=== PATIENT | female | born 1955 | race Caucasian/White ===

== ENCOUNTER → 2016-08-27 | Outpatient (CLI) | payer OTHER | END | disposition home or self-care (01) | LOC: C.LABMFLN 12:12 | PROVIDERS: ATTEND Internal Medicine Endocrinology, Diabetes & Metabolism | DX: E55.9 Vitamin D deficiency, unspecified (principal); M81.0 Age-related osteoporosis without current pathological fracture ==

== ENCOUNTER 2020-04-23 11:02 | Observation (INO) ==
--- NOTE | 2020-04-17 16:03 | Anesthesiology Consultation ---
Date of Service April 17, 2020 Assessment & Plan (1) Encounter for pre-operative examination: Chart Review Chart Review: Acceptable Risk for Surgery (pending DOS PRP ) and Patient NOT seen in Pre Admission Testing - PRP not done with preop testing- will order for AM of surgery. Per nursing assessment 04/16/2020, patient resides in [facility]. Denies any recent travel. Uses PPE. No known Covid infection in the past 90 days. No known Covid positive contacts or Covid related symptoms. Scheduled for preop Covid testing 04/17/20= awaiting results. Seen by PCP 12/26/2019 = PCP seen for preoperative medical clearance. Patient able to walk no chest symptoms. " There is no medical contraindication for the proposed surgery and anesthesia. Concerns/precautions: Tobacco smoker." History Surgery Operation Date: 04/23/20 12:20 Proposed Procedures p Right Total Hip Arthroplasty Anterior - Mando Barksdale DO s Removal Hardware - Mando Barksdale DO Height/Weight Height: 5 ft 1 in Weight: 70.307 kg Allergies Allergy/AdvReac Type Severity Reaction Status Date / Time codeine AdvReac Vomiting Verified 04/16/20 11:00 Medications Home Medications Medication Instructions Recorded Confirmed Last Taken docusate sodium 100 mg PO QPM 12/09/19 04/16/20 Unknown gabapentin 300 mg PO TID 12/09/19 04/16/20 Unknown paroxetine HCl 20 mg PO QPM 12/09/19 04/16/20 Unknown simvastatin 40 mg PO PM 12/09/19 04/16/20 Unknown meloxicam 15 mg PO PM 04/16/20 04/16/20 Unknown Past Medical History Medical History Degenerative disc disease Hyperlipemia IBS (irritable bowel syndrome) Osteoarthritis Post-menopausal prescribed paroxetine for post menopausal mood changes Past Family History Family History Grandmother Diabetes Other No family history of adverse response to anesthesia Past Surgical History Surgical History History of colonoscopy History of esophagogastroduodenoscopy (EGD) History of open reduction and internal fixation (ORIF) procedure Rt hip History of salpingectomy History of tooth extraction Social History Smoking Status: Current every day smoker tobacco type: cigarettes Smoking cigarettes per day: 1ppd Do You Dip or Chew Tobacco: No Hx Alcohol Use: No Hx Substance Use: No substance use type: does not use Testing Laboratory Results Laboratory Tests 04/17/20 04/17/20 12:16 12:16 WBC 8.06 Hgb 14.4 Hct 42.6 Plt Count 268 PT 10.3 INR 1.0 APTT 27.7 04/17/2020 = UA: Trace ketones, trace leukocyte esterase, 510 urine RBC, >30 epithelial cells, negative for bacteria HGB A1C: 6.1 Electrocardiogram Date: 12/21/19 NSR at 81bpm. iRBBB. Chest X-Ray Date: 12/21/19 Findings: + NAD Borderline cardiomegaly.
--- NOTE | 2020-04-22 09:55 | History & Physical Report ---
Date of Service April 23, 2020 Assessment & Plan (1) Degenerative joint disease of right hip: I have indicated the patient for Removal of hardware and right anterior total hip replacement. The risks, benefits and complications of surgery were explained to the patient which include but not limited to infection, acute blood loss, DVT/PE, injury to nerves, vessels, bone, soft tissue, arthrofibrosis, chronic pain, failure of the prosthesis, hip dislocation, leg length discrepancy, need for additional surgery, cardiac and pulmonary events and . The patient wished to proceed with surgery and informed consent was obtained at this time. We will plan for 81mg ASA BID post-operatively for DVT prophylaxis. Upon discharge the patient will be discharged home with home health services. Appropriate clearances by PCP were obtained. History of Present Illness Chief Complaint: Right hip pain/DJD Primary Care Provider: Stephon Barrios MD The patient is a 65 year old female who presents with complaints of severe right hip pain and DJD, PSHx for right hip fracture s/p ORIF with cannulated screws. The patient has failed outpatient conservative treatments to this point which included NSAIDs, IA corticosteroid injection and a home exercise/walking program. The patient's pain and limited function have progressed to the point where they severely hinder their activities of daily living and they no longer tolerate exercise programs. They are requesting to proceed with total hip replacement surgery. Allergies Allergy/AdvReac Type Severity Reaction Status Date / Time codeine AdvReac Vomiting Verified 04/23/20 11:34 Home Medications Medication Instructions Recorded Confirmed Type docusate sodium 100 mg PO QPM 12/09/19 04/23/20 History gabapentin 300 mg PO TID 12/09/19 04/23/20 History paroxetine HCl 20 mg PO QPM 12/09/19 04/23/20 History simvastatin 40 mg PO PM 12/09/19 04/23/20 History meloxicam 15 mg PO PM 04/16/20 04/23/20 History Past Med/Surg History Medical History Degenerative disc disease Hyperlipemia IBS (irritable bowel syndrome) Osteoarthritis Post-menopausal prescribed paroxetine for post menopausal mood changes Surgical History History of colonoscopy History of esophagogastroduodenoscopy (EGD) History of open reduction and internal fixation (ORIF) procedure Rt hip History of salpingectomy History of tooth extraction Family History Grandmother Diabetes Other No family history of adverse response to anesthesia Social History Smoking Status: Current every day smoker Cigarettes Per Day: 1ppd; Second Hand Exposure: No; Do You Dip or Chew Tobacco: No; Tobacco Cessation Education Requested by Patient: No Hx Alcohol Use: No Hx Substance Use: No Preferred Language: Greenlandic Communication Ability: Effective [employer] Membership Advisors Required: No Beliefs That Will Affect Care: None Current Living Situation: Spouse Other Information That Helps Us Care for You: No Feels Safe at Home: Yes Safety Concerns: Feels Safe At This Time Assistive Devices: Glasses Review of Systems Review of Systems: All systems reviewed & are unremarkable except as noted in HPI & below Constitutional: as per Subjective / HPI Physical Exam Physical Exam: RLE NVSI +EHL/FHL/TA/GS SILT grossly, +2 DP pulse, compartments soft NT, limited painful ROM of the hip, antalgic gait. Constitutional: WD/WN, vitals as above Eyes: PERRL, conjunctivae normal, anicteric sclerae ENMT: external ear and nose normal, oropharynx normal Neck: trachea midline, no thyromegaly Respiratory: normal respiratory effort, lungs clear to auscultation Cardiovascular: RRR, no murmur, no edema Gastrointestinal (Abdomen): normal bowel sounds, soft, nontender, no hepatosplenomegaly Musculoskeletal: no cyanosis or clubbing, extremities motor strength 5/5 Skin: no rashes, warm and dry Neurologic: patellar DTR's 2+ bilat, sensation intact Psychiatric: A+Ox3, euthymic affect Lymphatic: no cervical or axillary lymphadenopathy Results & Data Results & Data ([facility]) Diagnostic Findings Multiple views of the hip demonstrates severe DJD with complete loss of the joint space. +osteophytes, +sclerosis, +subchondral cysts. Well aligned well fixed cannulated screws.
[~2020-04-23 11:02] MED LIST: ACETAMINOPHEN 500 MG TAB PO SCH; BUPIVACAINE 0.5 % 5 MG/1 ML PF 10ML VIAL ONE; CeleBREX 200 MG CAP PO SCH; FAMOTIDINE 20 MG TAB PO SCH; GABAPENTIN 600 MG DOSE PO SCH; LR 500ML BOLUS, THEN 15ML/HR IV SCH; METOCLOPRAMIDE HCL 10 MG TABLET PO SCH; ROPIVACAINE 0.5% HCL/PF 150 MG, BUPIVACAINE 0.75% MPF 20 ML, EPINEPHrine 30MG/30ML (OR ... INSTIL SCH; TRANEXAMIC ACID 1,000 MG **IV Intra-op IV SCH; TRANEXAMIC ACID 1,000 MG **IV Pre-op IV SCH; ceFAZolin 1000MG 1,000 MG/7.5 ML SYR IV SCH; dexAMETHasone 4 MG TAB PO SCH
[2020-04-23 11:47] LABS: BUN Creatinine Ratio 15.9 (10-20); Calcium 10.2 mg/dl (8.5-10.1); Creatinine Clr Calc Pharmacy 67.1 ml/min; Est GFR (African American) 96.9; Est GFR (Non-African American) 83.6; Potassium 4.1 mmol/L (3.5-5.1)
[2020-04-23] MEDS ORDERED: PROPOFOL IV EMULSION 10 MG/ML 20 ML VIAL IV ONE (12:51)
[2020-04-23] MEDS ORDERED: MIDAZOLAM HCL 1 MG/ML 2ML VIAL ONE (12:51)
--- NOTE | 2020-04-23 13:44 | History & Physical Bridge Note ---
Date of Service April 23, 2020 History & Physical Bridge Note I have examined the patient, reviewed the History & Physical and in the interval since the performance of the History & Physical I have noted the following changes of clinical significance: no changes noted
[2020-04-23] MEDS ORDERED: ORTHO JOINT ANESTHETIC ONE (14:07)
[2020-04-23] MEDS ORDERED: BACITRACIN INJ 50,000 UNIT VIAL ONE (14:07)
[2020-04-23] MEDS ORDERED: ePHEDrine sulfate 50 MG/ML AMP IV PRN (14:26)
[2020-04-23] MEDS ORDERED: fentaNYL citrate 100 MCG/2 ML VIAL IV PRN (14:26)
[2020-04-23] MEDS ORDERED: ATROPINE SULFATE 0.1 MG/ML 10ML SYR IV PRN (14:26)
[2020-04-23] MEDS ORDERED: ONDANSETRON INJ 2 MG/ML 2 ML VIAL IV PRN ×2 (14:26→18:01)
--- NOTE | 2020-04-23 16:47 | Post Operative Brief Note ---
Immediate Post Op Note v1 Date of Surgery April 23, 2020 Pre & Post Diagnosis Operation Date: 04/23/20 13:20 Pre-Op Diagnosis: Right Hip Arthritis, Retained Hardware Post-Op Diagnosis: Right Hip Arthritis, Retained Hardware I identified the patient and participated in the time-out.: Yes Procedure Operation Date: 04/23/20 13:20 Actual Procedures p Right Total Hip Arthroplasty Anterior(Right) - Mando Barksdale DO s Removal Hardware(Right) - Mando Barksdale DO Surgeon Mando Barksdale DO Tender Labor Jamey Tai Estimated Blood Loss 255 Findings Consistent with Post-Op Diagnosis Fluids See anesthesia report Specimens Femoral head Anesthesia Type Spinal MAC Complications none Disposition Disposition: Recovery Room Overlapping Procedure I was present for: the critical portions of procedure. I was immediately available: during the entire case. Back up surgeon: was not required during procedure.
[2020-04-23] MEDS ORDERED: LIDOCAINE HCL 2% 2 ML VIAL/AMP(20MG/ML) INFIL ONE (16:50)
[2020-04-23] MEDS ORDERED: PHENYLEPHRINE HCL 10 MG/ML VIAL ONE (16:50)
--- NOTE | 2020-04-23 16:52 | Operative Report ---
Post Operative Report Pre & Post Diagnosis Operation Date: 04/23/20 13:20 Pre-Op Diagnosis: Right Hip Arthritis, Retained Hardware Post-Op Diagnosis: Right Hip Arthritis, Retained Hardware I identified the patient and participated in the time-out.: Yes Procedure Operation Date: 04/23/20 13:20 Actual Procedures p Right Total Hip Arthroplasty Anterior(Right) - Mando Barksdale DO s Removal Hardware(Right) - Mando Barksdale DO Surgeon Mando Barksdale DO Assessor Jamey Tai Estimated Blood Loss 255 Findings Consistent with Post-Op Diagnosis Fluids See anesthesia report Specimens Femoral head Anesthesia Type Spinal MAC Complications none Disposition Disposition: Recovery Room Indications The patient is a 65 year old female who presents with complaints of severe right hip pain and DJD, PSHx for right hip fracture s/p ORIF with cannulated screws. The patient has failed outpatient conservative treatments to this point which included NSAIDs, IA corticosteroid injection and a home exercise/walking program. The patient's pain and limited function have progressed to the point where they severely hinder their activities of daily living and they no longer tolerate exercise programs. They are requesting to proceed with total hip replacement surgery. I have indicated the patient for Removal of hardware and right anterior total hip replacement. The risks, benefits and complications of surgery were explained to the patient which include but not limited to infection, acute blood loss, DVT/PE, injury to nerves, vessels, bone, soft tissue, arthrofibrosis, chronic pain, failure of the prosthesis, hip dislocation, leg length discrepancy, need for additional surgery, cardiac and pulmonary events and . The patient wished to proceed with surgery and informed consent was obtained at this time. We will plan for 81mg ASA BID post-operatively for DVT prophylaxis. Upon discharge the patient will be discharged home with home health services. Appropriate clearances by PCP were obtained. Description of Procedure COMPONENTS USED: [employer] Polar hip system: Acetabulum size 52, femur size 3 high offset, femoral head 36+4, liner 52x36, acetabular screw 25 mm x 2. DESCRIPTION OF PROCEDURE: Following satisfactory spinal anesthesia, the patient was placed supine on the OR table. The left leg was placed in the well leg garcia and the right leg in the traction device. The right leg was prepared with ChloraPrep and draped sterilely. A surgical timeout was performed, patient identified and site ugo verified. Appropriate antibiotics were given. A direct lateral incision was performed through skin and subcutaneous tissue in line with previous incision. Electrocautery was utilized for hemostasis. Dissection was carried down through fascia to bone. The Jacome was utilized to clear the soft tissue overlying the cannulated screw heads. Under direct visualization 3 cannulated screws in their entirety were removed utilizing the 4.0 hex head screwdriver. C-arm fluoroscopy was utilized to ensure adequate removal of the the screws without injury to surrounding bone. Next a standard anterior approach in the interval between the sartorius and tensor muscles was performed. Dissection was carried down through subcutaneous tissues. Electrocautery was utilized for hemostasis. Circumflex femoral vessels were identified, tied and ligated. The anterior capsular fat pad was removed and the capsulotomy was performed revealing the arthritic femoral neck and head. A femoral neck cut was made with reciprocating saw and the bone fragments removed. The acetabular self-retraining retractor was placed. Acetabular reaming was completed under fluoroscopic guidance, a 52 shell was impacted into an anatomic position and secured with a acetabular screw. Local anesthetic was placed and following irrigation, the polyethylene liner was placed. The femur was placed into position of external rotation, extension and adduction. Femoral canal was prepared up to the size 3 high offset. Trial reduction with a 36+4 neck length head showed good soft tissue tension, leg lengths restored, and good fit and fill of the proximal canal using fluoroscopic landmarks. The hip was dislocated. The trial component was removed. The final implant was placed. The hip was irrigated with sterile saline solution and reduced. A Betadine soak was performed. After 3 minutes, the hip was once more irrigated with copious sterile saline solution with bacitracin. Jeanine-incisional soft tissue was injected utilizing [place] [employer] which includes a combination of Ropivicaine 0.5% 150mg, Bupivicaine 0.5%/Epinephrine 1:200,000 30ml, Toradol 30mg, Dexamethasone 4mg, Ketamine 10mg, Clonidine 100mcg and NSS 30ml solution. The capsule was then closed with 1-0 Vicryl interrupted figure of eight sutures. The fascia was closed with a running suture of #1 Vicryl, the subcutaneous tissues with 2-0 Vicryl and the skin was closed with don. A sterile dry dressing was applied which included Xeroform 4 x 4's ABDs and foam tape. The patient tolerated the procedure well and was transported to PACU in stable condition. Due to the complex nature of the procedure, the entire surgery was performed with the operational assistance of Jamey Tai PA-C. The therapist's assistant, under direct supervision, was involved in the actual performance of all aspects of the surgical procedure including patient positioning, hemostasis, tissue retraction, instrument management and wound closure. I attest to the content of the Intraoperative Record and any orders documented therein. Any exceptions are noted below.
--- NOTE | 2020-04-23 17:39 | XRay Report ---
SINGLE VIEW PELVIS; SINGLE VIEW RIGHT HIP CLINICAL HISTORY: Postoperative examination. FINDINGS: An AP portable view of the hips and pelvis with a crosstable lateral portable view of the r ight hip are obtained. A bipolar right hip arthroplasty is in near-anatomic alignment. 2 cortical lag screws transfix the acetabular cup. No acute fracture is identified. There are expected postoperativ e changes overlying the right hip including skin clips, subcutaneous gas, and soft tissue swelling. M oderate arthritic changes seen in the left hip. There are pelvic phleboliths. IMPRESSION: Expected postoperative findings status post right hip arthroplasty. No acute fracture is seen. ACT 112: Negative or not required by law. Electronically signed by: Dayron Maynard M.D. 04/23/2020 5:38 PM
--- NOTE | 2020-04-23 17:57 | Anesthesiology Progress Note ---
Date of Service April 23, 2020 Anesthesia Post Procedure Vital Signs Vital Signs: Temp Pulse Pulse Resp BP Pulse Ox 04/23/20 17:50 73 16 147/75 H 95 04/23/20 17:40 36.5 C 80 18 148/76 H 96 04/23/20 17:30 79 16 142/95 H 100 04/23/20 17:20 71 16 150/74 H 100 04/23/20 17:16 36.7 C 73 18 157/72 H 100 04/23/20 11:56 36.8 C 86 18 148/92 H 95 Transfer of Care Handoff Completed per policy Notes Mental Status: alert / awake / arousable and participated in evaluation Nausea / Vomiting: adequately controlled Pain: adequately controlled Airway Patency, RR, SpO2: stable & adequate BP & HR: stable & adequate Hydration State: stable & adequate Neuraxial Anesthesia: was administered and sensory block is resolving Anesthetic Complications: no major complications apparent and Pt Satisfied with anesthetic care
[2020-04-23] MEDS ORDERED: NALOXONE HCL 0.4 MG/1 ML VIAL/CARP IV PRN (18:01)
[2020-04-23] MEDS ORDERED: METOCLOPRAMIDE HCL INJ 5 MG/ML 2 ML VIAL IV PRN (18:01)
[2020-04-23] MEDS ORDERED: HYDROmorphone INJ 0.5 MG/0.5 ML SYR IV PRN (18:01)
[2020-04-23] MEDS ORDERED: MAGNESIUM HYDROXIDE SUSP 30 ML UDC PO PRN (18:01)
[2020-04-23] MEDS ORDERED: bisacodyL 10 MG SUPP PR PRN (18:01)
[2020-04-23] MEDS ORDERED: oxyCODONE HCL IR 5 MG TAB (IMMEDIATE RELEASE) PO PRN (18:01)
[2020-04-23] MEDS ORDERED: diphenhydrAMINE Capsule 25 MG CAP PO PRN (18:01)
--- NOTE | 2020-04-23 18:57 | Fluoroscopy Report ---
INTRAOPERATIVE RADIOGRAPHS CLINICAL HISTORY: Right hip arthroplasty. Fluoroscopy time: 35 seconds. FINDINGS: 2 spot fluoroscopic views of the right hip from an arthroplasty procedure are presented. A bipolar right hip arthroplasty is in near-anatomic alignment. At least one cortical lag screw transfi xes the acetabular cup. There is no evidence of fracture on these fluoroscopic views. IMPRESSION: Intraoperative images from a right hip arthroplasty procedure as above. Electronically signed by: Dayron Maynard M.D. 04/23/2020 6:56 PM
[2020-04-23] MEDS ORDERED: SODIUM CHLORIDE 0.9% 1000ML 1,000 ML IV SCH (19:00)
--- NOTE | 2020-04-23 19:00 | Orthopedic Progress Note ---
Date of Service April 23, 2020 Assessment & Plan (1) Degenerative joint disease of right hip: s/p RICCO, Right anterior ALICIA -ancef x 24 -DVT ppx: SCDs, TEDs, 81mg ASA BID -WBAT RLE -PT/OT -PO XR demonstrates a well aligned well fixed prosthesis without fracture/dislocation -am labs -DC planning Admission and Anticipated Discharge Date Admission Date: April 23, 2020 Subjective Post Operative Progress Note Patient seen in PACU, comfortable, denies complaints, pain well controlled, no acute issues. Review of Systems Review of Systems: All systems reviewed & are unremarkable except as noted in HPI & below Constitutional: as per Subjective / HPI Physical Exam Physical Exam: RLE NVSI +EHL/FHL/TA/GS SILT grossly, +2 DP pulse, compartments soft NT, dressing cdi. Constitutional: WD/WN, vitals as above Results & Data ([facility]) Vital Signs (Past 12 Hours) Vital Signs Temp Pulse Pulse Resp BP Pulse Ox 04/23/20 18:32 76 18 145/85 H 97 04/23/20 18:00 36.6 C 77 18 158/85 H 95 04/23/20 17:50 73 16 147/75 H 95 04/23/20 17:40 36.5 C 80 18 148/76 H 96 04/23/20 17:30 79 16 142/95 H 100 04/23/20 17:20 71 16 150/74 H 100 04/23/20 17:16 36.7 C 73 18 157/72 H 100 04/23/20 11:56 36.8 C 86 18 148/92 H 95
[2020-04-23] MEDS ORDERED: SIMVASTATIN 40 MG TAB PO SCH (21:00)
[2020-04-23] MEDS ORDERED: SENNA 8.6 MG TAB PO SCH (21:00)
[2020-04-23] MEDS ORDERED: PARoxetine HCL 20 MG TAB PO SCH (21:00)
[2020-04-23] MEDS: GABAPENTIN 300 MG CAP PO SCH (21:28)
[2020-04-23] MEDS: ACETAMINOPHEN 500 MG TAB PO SCH (21:30)
[2020-04-23] MEDS: ceFAZolin 2000MG 2,000 MG/15 ML SYR IV SCH (21:30)
[2020-04-23] MEDS: DOCUSATE SODIUM 100 MG CAP PO SCH (21:30)
[2020-04-24] MEDS: ceFAZolin 2000MG 2,000 MG/15 ML SYR IV SCH (05:19)
[2020-04-24] MEDS: ACETAMINOPHEN 500 MG TAB PO SCH ×2 (05:19→13:43)
[2020-04-24 05:58] LABS: Basophils # (auto) 0.01 K/uL (0-0.2); Basophils % (auto) 0.1 %; Hematocrit (blood only) 31.8 % (37-47); Hemoglobin 10.7 g/dL (12.0-16.0); Immature Granulocytes # (auto) 0.03 K/uL (0.00-0.02); Immature Granulocytes % (auto) 0.3 %; Mean Corpuscular Hgb Conc 33.6 g/dL (32-36); Mean Corpuscular Volume 92.2 fL (80-100); Mean Platelet Volume 10.2 fL (7.4-10.4); Monocytes # (auto) 1.27 K/uL (0.11-0.59); Monocytes % (auto) 11.1 %; Neutrophils # (auto) 8.51 K/uL (1.4-6.5); Neutrophils % (auto) 74.5 %; Platelet Count 227 K/uL (130-400); RDW Coefficient of Variation 13.8 % (11.5-14.5); Red Blood Count 3.45 M/uL (4.2-5.4); White Blood Count 11.42 K/uL (4.8-10.8)
[2020-04-24 06:24] LABS: BUN Creatinine Ratio 18.3 (10-20); Calcium 8.8 mg/dl (8.5-10.1); Creatinine Clr Calc Pharmacy 73.4 ml/min; Est GFR (African American) 98.5; Potassium 3.8 mmol/L (3.5-5.1)
--- NOTE | 2020-04-24 07:29 | Orthopedic Progress Note ---
Date of Service April 24, 2020 Assessment & Plan (1) Degenerative joint disease of right hip: s/p RICCO, Right anterior ALICIA POD#1 -ancef x 24 -DVT ppx: SCDs, TEDs, 81mg ASA BID -WBAT RLE -PT/OT -PO XR demonstrates a well aligned well fixed prosthesis without fracture/dislocation -am labs - as above, hgb 10.7 -DC planning - DC home with Admission and Anticipated Discharge Date Admission Date: April 23, 2020 Subjective Post Operative Progress Note Patient seen sitting up in bed, comfortable, denies complaints, pain well controlled, no acute issues. Denies F/C/N/V/SOB/CP. Review of Systems Review of Systems: All systems reviewed & are unremarkable except as noted in HPI & below Constitutional: as per Subjective / HPI Physical Exam Physical Exam: RLE NVSI +EHL/FHL/TA/GS SILT grossly, +2 DP pulse, compartments soft NT, dressing cdi. Constitutional: WD/WN, vitals as above Results & Data ([facility]) Vital Signs (Past 12 Hours) Vital Signs Temp Pulse Resp BP BP Pulse Ox 04/24/20 07:16 36.7 C 72 18 159/77 H 97 04/24/20 02:07 36.5 C 62 18 146/78 H 97 04/23/20 20:58 36.7 C 83 16 146/78 H 96 04/23/20 20:01 36.7 C 76 18 137/81 98 Laboratory Results 04/24/20 04/24/20 04/23/20 Range/Units 05:25 05:25 11:21 WBC 11.42 H (4.8-10.8) K/uL RBC 3.45 L (4.2-5.4) M/uL Hgb 10.7 L (12.0-16.0) g/dL Hct 31.8 L (37-47) % MCV 92.2 (80-100) fL MCH 31.0 (25-34) pg MCHC 33.6 (32-36) g/dL RDW Std Deviation 46.0 (36.4-46.3) fL RDW Coeff of Megha 13.8 (11.5-14.5) % Plt Count 227 (130-400) K/uL MPV 10.2 (7.4-10.4) fL Immature Gran % (Auto) 0.3 % Neut % (Auto) 74.5 % Lymph % (Auto) 14.0 % Thayer % (Auto) 11.1 % Eos % (Auto) 0.0 % Baso % (Auto) 0.1 % Neut # (Auto) 8.51 H (1.4-6.5) K/uL Lymph # (Auto) 1.60 (1.2-3.4) K/uL Thayer # (Auto) 1.27 H (0.11-0.59) K/uL Eos # (Auto) 0.00 (0-0.5) K/uL Baso # (Auto) 0.01 (0-0.2) K/uL Immature Gran # (Auto) 0.03 H (0.00-0.02) K/uL Sodium 141 145 (136-145) mmol/L Potassium 3.8 4.1 (3.5-5.1) mmol/L Chloride 111 H 112 H (98-107) mmol/L Carbon Dioxide 23 21 (21-32) mmol/L Anion Gap 7.0 12.0 H (3-11) BUN 14 12 (7-18) mg/dl Creatinine 0.74 0.75 (0.6-1.2) mg/dl Est Cr Clr Drug Dosing 73.4 67.1 ml/min Est GFR ( Amer) 98.5 96.9 Est GFR (Non-Af Amer) 85.0 83.6 BUN/Creatinine Ratio 18.3 15.9 (10-20) Glucose 124 H 110 H (70-99) mg/dl Calcium 8.8 10.2 H (8.5-10.1) mg/dl Blood Type Antibody Screen 04/23/20 Range/Units 11:21 WBC (4.8-10.8) K/uL RBC (4.2-5.4) M/uL Hgb (12.0-16.0) g/dL Hct (37-47) % MCV (80-100) fL MCH (25-34) pg MCHC (32-36) g/dL RDW Std Deviation (36.4-46.3) fL RDW Coeff of Megha (11.5-14.5) % Plt Count (130-400) K/uL MPV (7.4-10.4) fL Immature Gran % (Auto) % Neut % (Auto) % Lymph % (Auto) % Thayer % (Auto) % Eos % (Auto) % Baso % (Auto) % Neut # (Auto) (1.4-6.5) K/uL Lymph # (Auto) (1.2-3.4) K/uL Thayer # (Auto) (0.11-0.59) K/uL Eos # (Auto) (0-0.5) K/uL Baso # (Auto) (0-0.2) K/uL Immature Gran # (Auto) (0.00-0.02) K/uL Sodium (136-145) mmol/L Potassium (3.5-5.1) mmol/L Chloride (98-107) mmol/L Carbon Dioxide (21-32) mmol/L Anion Gap (3-11) BUN (7-18) mg/dl Creatinine (0.6-1.2) mg/dl Est Cr Clr Drug Dosing ml/min Est GFR ( Amer) Est GFR (Non-Af Amer) BUN/Creatinine Ratio (10-20) Glucose (70-99) mg/dl Calcium (8.5-10.1) mg/dl Blood Type A Positive Antibody Screen NEGATIVE
[2020-04-24] MEDS: GABAPENTIN 300 MG CAP PO SCH ×2 (08:30→13:42)
[2020-04-24] MEDS: DOCUSATE SODIUM 100 MG CAP PO SCH (08:31)
[2020-04-24] MEDS ORDERED: MULTIVITAMIN TAB PO SCH (09:00)
[2020-04-24] MEDS ORDERED: ASPIRIN 81 MG ECTAB PO SCH (09:00)
--- NOTE | 2020-04-24 17:58 | Discharge Summary ---
Date of Service April 24, 2020 Admission HPI Per Admitting Provider The patient is a 65 year old female who presents with complaints of severe right hip pain and DJD, PSHx for right hip fracture s/p ORIF with cannulated screws. The patient has failed outpatient conservative treatments to this point which included NSAIDs, IA corticosteroid injection and a home exercise/walking program. The patient's pain and limited function have progressed to the point where they severely hinder their activities of daily living and they no longer tolerate exercise programs. They are requesting to proceed with total hip replacement surgery. Principal Diagnosis Removal of hardware, Right anterior ALICIA -Post-traumatic right hip DJD Discharge Exam RLE NVSI +EHL/FHL/TA/GS SILT grossly, +2 DP pulse, compartments soft NT, dressing cdi. Constitutional WD/WN, vitals as above Discharge Data Allergies Allergy/AdvReac Type Severity Reaction Status Date / Time codeine AdvReac Vomiting Verified 04/23/20 11:34 Consultations 04/24/20 08:00 Consult Case Management - Discharge Planning Routine Procedures Performed Operation Date: 04/23/20 13:20 Actual Procedures p Right Total Hip Arthroplasty Anterior(Right) - Mando Barksdale DO s Removal Hardware(Right) - Mando Barksdale DO Ordered Studies 04/23/20 13:20 FL fluoroscopy <1hr Routine FL hip RT 1V Routine Hospital Course (1) Degenerative joint disease of right hip: The patient is a 65 -year-old female who presents with long standing history of severe right hip post-traumatic DJD and failed outpatient conservative treatments. The patient's symptoms have progressed to the point where it has been difficult to perform even normal activities of daily living. I indicated the patient for RICCO and a Right anterior total hip arthroplasty, the risks, benefits and complications of the procedure include but not limited to infection, bleeding, damage to bone, nerves, vessels, surrounding soft tissue, may develop blood clots, loss of function, leg length discrepancy, dislocation, failure of the components, loosening of the components, the need for additional surgery and . The patient wished to proceed with surgery at this time and informed consent was obtained. Hospital Course: On 04/23/20 the patient was taken to the operating room, adequate anesthesia administered and underwent removal of hardware and right anterior total hip arthroplasty. The patient tolerated the procedure well and was taken to the PACU in stable condition. Post-operatively the patient was started on a DVT ppx medication and given appropriate IV antibiotics. Consults were placed to physical therapy, occupational therapy and case management. On POD#1, the patient did well overnight and their pain was well controlled. Labs were drawn and the Hgb was 10.7. The patient progressed well with PT. Dressings were changed at this time and the incision was clean, dry and intact. The patients hospital stay was relatively uneventful and they were deemed stable by the orthopedic team and consultants to be discharged home with HH on 04/24/20. Discharge Instructions: Upon discharge the patient may weight bear as tolerates through their operative extremity. They were instructed to keep the incision clean and dry at all times. The patient may shower but should not submerge the incision, avoid bathing, pools and hot tubs. The patient was given a script for pain medication and should take as instructed. The patient was given a script for DVT ppx 81mg ASA BID and should take as directed. The patient was instructed to not drive or travel for long distances until cleared to do so. If the patient develops any symptoms of fevers, chills, nausea, vomiting, increased redness, swelling, pain or drainage from the surgical site, they should notify the office and/or proceed to the nearest emergency room. The patient should follow up in 10-14 days after surgery for their routine post-operative follow-up appointment and should call the office, to confirm the date and time. s/p RICCO, Right anterior ALICIA POD#1 -ancef x 24 -DVT ppx: SCDs, TEDs, 81mg ASA BID -WBAT RLE -PT/OT -PO XR demonstrates a well aligned well fixed prosthesis without fracture/dislocation -am labs - as above, hgb 10.7 -DC planning - DC home with Total Time Total Time Spent Total Time Spent (In Minutes): 30 Discharge Plan Discharge Items Patient Disposition: Home - Home Health Services Reason For Visit: Right Hip Arthritis, Retained Hardware Discharge Diagnosis: Removal of hardware, Right anterior total hip replacement -Right hip post-traumatic DJD Condition on Discharge: Good Activity: Per Instructions section Lifting: Wait until after follow-up appointment Bathing: Keep incision dry Bathing Comment: No bathing, pools or hot tubs. Sexual Activity: Wait until after follow-up appointment Exercise/Sports: Wait until after follow-up appointment Driving/Machine Use: No driving. Weightbearing: Full weightbearing Non-emergency contact: Primary Care Provider and Surgeon Call non-emergency contact if: you have any medication questions, your symptoms worsen, your pain is not controlled, your pain is worsening, your pain is unusual for you, your pain is concerning for you, you have a fever, your temperature is above 101, your wound has increased redness, your wound has increased drainage and your wound pain has increased Follow-up/Referrals: Stephon Barrios MD [Primary Care Provider] - Diet: Regular Addtl Attending Provider Instructions: ACTIVITY RECOMMENDATIONS: SELF CARE INSTRUCTIONS AFTER TOTAL HIP REPLACEMENT : Direct Anterior Approach Until the incision and soft tissues around your hip have healed, there is a possibility that the hip prosthesis could dislocate. A. Hip flexion ( Up & Down out of chair or steps ) may be difficult. This is normal. B. Numbness in front of the thigh is also normal for a few weeks. C. Use hand rails when walking on stairs. D. Wear low heeled shoes with non-slip soles. E. Be sure that your floors are free of things that could trip you - throw rugs, electrical cords, small objects. Avoid wet and waxed floors, especially with crutches and canes. F. Try to walk several times a day with rest periods between. G. Continue with all the exercises taught to you in the hospital. Again, make walking a part of your daily routine. SPECIAL CARE INSTRUCTIONS: VERY IMPORTANT TO READ AND REVIEW A. You may still be at risk for phlebitis and blood clots. 1. Wear surgical stockings (GARTH hose) for 2 weeks after surgery to improve circulation and reduce swelling. 2. Take Aspirin 81mg twice daily for 4 weeks or as directed by your doctor. This is your blood thinner. 3. High risk patients may be prescribed a stronger blood thinner if necessary. 4. If you are on Coumadin normally, your family doctor/liberal arts dean should monitor your blood work. Expect a phone call the day of or the day after bloodwork is drawn to adjust your dosage. B. You must take antibiotics before having dental work, bladder, bowel and other surgery. Your doctor will provide you with a permanent card to carry describing precautions. C. [facility] if you have a fever, redness or swelling around the incision, cloudy drainage from incision, or sudden increase in pain in your hip, not relieved by your regular pain medication. D. Please call the office at if you have any concerns or questions about your operation or recovery. * YOU MAY SHOWER, NO TUB BATHS UNTIL CLEARED BY YOUR DOCTOR. - Keep an extra close eye on the top portion of your incision. Be sure to keep clean & dry. * WEAR GARTH HOSE 20 HOURS PER DAY FOR 2 WEEKS. * YOU MAY PROGRESS FROM A WALKER, TO A CANE, TO INDEPENDENT AT YOUR OWN PACE. * MOST PATIENTS WILL HAVE HOME NURSING FOR THERAPY. IF YOU DECIDE TO DO OUTPATIENT PHYSICAL THERAPY, PLEASE SCHEDULE THIS 3 TIMES PER WEEK. Keep incision clean and dry. It is normal to have spotting on dressing the first few days. If dry you may leave uncovered. FOLLOW UP VISIT: If appointment is not already scheduled: Please call [facility] to make a follow-up appointment for 2 weeks after your surgery at . Pending Studies at Discharge: No Stand-Alone Forms: My [facility] [employer], Smoking Cessation Medications and DC Order Prescriptions: New acetaminophen 500 mg Tablet 1,000 mg PO Q8 PRN (Reason: fever or pain) Qty: 90 RF: 0 aspirin 81 mg Tablet,Delayed Release (Dr/Ec) 81 mg PO BID Qty: 56 RF: 0 oxycodone 5 mg Tablet 5 mg PO Q6H MDD 4 PRN (Reason: pain) Qty: 30 RF: 0 sennosides [Senokot] 8.6 mg Tablet 17.2 mg PO HS PRN (Reason: constipation) Qty: 28 RF: 0 Continued simvastatin 40 mg Tablet 40 mg PO PM RF: 0 paroxetine HCl 20 mg Tablet 20 mg PO QPM RF: 0 gabapentin 300 mg Tablet 300 mg PO TID RF: 0 docusate sodium 100 mg Tablet 100 mg PO QPM RF: 0 Discontinued meloxicam 15 mg Tablet 15 mg PO PM RF: 0 Discharge Orders: Discharge Order (Routine); Ordered 04/24/20 Ordered By: Mando Kamara/Other Patient Handouts: DVT Post Op Prevention Admission Data Admit Date/Time: 04/23/20 17:18 Attending Provider: Mando Barksdale Admit Provider: Mando Barksdale Primary Care Provider: Stephon Barrios I. Other Interventions: Discharge Summary Assessment (RN) Last Done: 04/24/20 14:15
== END 2020-04-24 15:36 | disposition home health service (06) ==
LOC: 3E 11:02 → ASU 11:02